=== PATIENT | male | born 1950 | race Caucasian/White ===

== ENCOUNTER → 2018-02-28 | Outpatient (CLI) | payer MEDICARE | END | disposition home or self-care (01) | LOC: US 07:50 | PROVIDERS: ATTEND Internal Medicine Gastroenterology | DX: N26.1 Atrophy of kidney (terminal) (principal); R06.81 Apnea, not elsewhere classified; K29.70 Gastritis, unspecified, without bleeding; N18.9 Chronic kidney disease, unspecified | CPT/HCPCS: 76700 ==

== ENCOUNTER → 2018-09-09 | Outpatient (CLI) | payer MEDICARE, MEDICAID ==
[~2018-09-09] MED LIST: BARIUM SULFATE 450ML ORAL SUSP ONE; IOHEXOL-300 100 ML BOTTLE ONE; IOHEXOL-350 100 ML BOTTLE ONE
== END | disposition home or self-care (01) ==
LOC: CT 07:44
PROVIDERS: ATTEND Internal Medicine Gastroenterology
DX: K76.0 Fatty (change of) liver, not elsewhere classified (principal); N18.9 Chronic kidney disease, unspecified
CPT/HCPCS: 74177; Q9967

== ENCOUNTER → 2019-02-13 | Outpatient (CLI) | payer MEDICARE, MEDICAID | END | disposition home or self-care (01) | LOC: US 07:12 | PROVIDERS: ATTEND Internal Medicine Gastroenterology | DX: K76.0 Fatty (change of) liver, not elsewhere classified (principal); R16.0 Hepatomegaly, not elsewhere classified | CPT/HCPCS: 76700 ==